=== PATIENT | male | born 1970 | race Caucasian/White ===

== ENCOUNTER → 2017-10-17 | Outpatient (CLI) | payer BC, OTHER ==
--- NOTE | 2017-10-17 11:17 | DIAGNOSTIC IMAGING REPORT ---
NECK ULTRASOUND HISTORY: Right parotid gland swelling. HYPERTROPHY OF SALIVARY GLANDS COMPARISON: None. FINDINGS: Real-time sonographic imaging of the parotid and submandibular glands were performed. The parotid and submandibular glands are essentially symmetric. No masses or fluid collections identified. IMPRESSION: The parotid and submandibular glands are within normal limits. Electronically signed by: Kain Mejia M.D. 10/17/2017 11:16 AM Dictated Date/Time: 10/17/2017 11:14 AM
== END | disposition home or self-care (01) ==
LOC: C.ULTRBC 09:47
PROVIDERS: ATTEND Nurse Practitioner Family
DX: K11.1 Hypertrophy of salivary gland (principal)